=== PATIENT | male | born 1980 | race African-American/Black ===

== ENCOUNTER 2022-08-20 02:15 | Emergency (ER) | payer OTHER ==
[~2022-08-20] VITALS: Ht 175.3 cm; Wt 80.0 kg
[2022-08-20] MEDS ORDERED: LEVETIRACETAM 1000MG PREMIX 100 ML IV ONE (03:00)
[2022-08-20] MEDS ORDERED: LORAZEPAM 2MG/ML CPJ IV ONE (03:15)
[2022-08-20] MEDS ORDERED: SODIUM CHLORIDE 0.9% 1,000 ML IV ONE ×2 (03:15→05:15)
[2022-08-20 03:24] LABS: BASOPHILS % 0.4 % (0.0-2.0); EOSINOPHILS % 0.2 % (0.0-5.0); HEMATOCRIT. 42.4 % (42.0-52.0); LYMPHOCYTES % 11.5 % (20.0-50.0); MEAN CORPUSCULAR HEMOGLOBIN 31.3 pg (28.0-32.0); MEAN CORPUSCULAR VOLUME 94.8 fL (80.0-94.0); MEAN PLATELET VOLUME 8.9 fl (7.4-10.4); MONOCYTES % 9.2 % (2.0-8.0); NEUTROPHILS % 78.7 % (40.0-76.0); PLATELET 206 x1000/uL (130-400); RED BLOOD CELL COUNT 4.48 mill/uL (4.7-6.1); RED CELL DISTRIBUTION WIDTH 13.9 % (11.6-14.6)
[2022-08-20 03:34] LABS: CHLORIDE 103 mEq/L (98-107)
[2022-08-20 09:58] VITALS: BP 153/81
== END 2022-08-20 10:21 | disposition short-term general hospital (02) ==
LOC: ER 02:23
DX: G40.901 Epilepsy, unspecified, not intractable, with status epilepticus (principal); E87.20 Acidosis, unspecified; Z20.822 Contact with and (suspected) exposure to COVID-19
CPT/HCPCS: 36415; 70450; 71045; 80053; 80320; 83605; 85025; 87426; 93005; 96361; 96374; 99291; C9803; J1953; J2060; J7030; Z7610; G0480